=== PATIENT | female | born 1960 | race Caucasian/White ===

== ENCOUNTER 2017-10-03 03:08 | Emergency (ER) | payer BC, OTHER ==
[~2017-10-03] VITALS: Ht 152.4 cm; Wt 75.7 kg
[2017-10-03 03:23] VITALS: BP 155/88
[2017-10-03] MEDS ORDERED: SOLU-MEDROL ONE (03:24)
[2017-10-03] MEDS ORDERED: BENADRYL PO ONE (03:25)
[2017-10-03] MEDS ORDERED: SOLU-MEDROL IM STA (03:26)
[2017-10-03] MEDS ORDERED: BENADRYL PO STA (03:26)
--- NOTE | 2017-10-03 03:47 | ER.PDOC ---
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 Also ate almonds at that time, but has eaten them in the past. Noted facial flushing, "funny feeling in throat", the latter better with 25 mg po Benadryl (no more) taken at home. No hx of this in past. No other symptoms. No wheezing, SOB, tongue swelling, etc. Severity: mild Associated Symptoms: skin rash, redness Identified Cause: possibly Exposure: other Allergies: Coded Allergies: No Known Allergies (Unverified , 10/03/17) Vital Signs First Vital Signs Date Time Temp Pulse Resp B/P (MAP) Pulse Ox O2 Delivery O2 Flow Rate FiO2 10/03/17 03:17 97.9 97 16 10/03/17 03:17 98 Room Air 10/03/17 03:23 155/88 (110) Last Vital Signs Date Time Temp Pulse Resp B/P (MAP) Pulse Ox O2 Delivery O2 Flow Rate FiO2 10/03/17 03:23 97.9 97 16 155/88 (110) 98 Room Air Past Medical History Medical History: asthma, cancer, other (obesity, BMI 33) Surgical History: cancer surgery, knee LMP (females 10-50): 1 month Social History Smoking: non-smoker, other Alcohol Use: occassionally Drug Use: none Constitutional: see HPI EENTM: see HPI Respiratory: no symptoms reported Gastrointestinal: no symptoms reported Musculoskeletal: no symptoms reported Skin: see HPI All Other Systems: Reviewed and Negative Physical Exam General Appearance: alert, no distress HEENT: ENT nml inspection, voice nml Skin: warm/dry (no uticaria noted, no diaphoresis), other (+ facial flushing on cheeks/forehead, no angioedema, no tongue swelling or pharyngeal edema) Neck: nml inspection Respiratory: no resp. distress NEURO/PSYCH: oriented x 3, CN's nml as tested Results/Orders Results/Orders Administered Medications Medications (Trade) Dose Ordered Sig/Chato Route PRN Reason Start Time Stop Time Status Last Admin Dose Admin Methylprednisolone Sodium Succinate (Solu-Medrol) 125 mg STAT STAT IM 10/03/17 03:26 10/03/17 03:30 DC 10/03/17 03:37 Diphenhydramine HCl (Benadryl) 25 mg STAT STAT PO 10/03/17 03:26 10/03/17 03:30 DC 10/03/17 03:37 Progress Progress solumendrol IM and 25 mg more of Benadryl, home with 2 days off work and instructions to take this med 50 mg q 4-6 hrs until erythema gone. Departure Time of Disposition: 03:50 Disposition: 01 HOME, SELF-CARE Impression: Primary Impression: Acute allergic reaction Condition: Stable Referrals: PCP,UNKNOWN (PCP) PRIMARY CARE PROVIDER Duration or Time Spent with Pa: 10 Problem Qualifiers Primary Impression: Acute allergic reaction Encounter type: initial encounter Qualified Codes: T78.40XA - Allergy, unspecified, initial encounter KOBI CUBA MD October 03, 2017 03:47
[2017-10-03 04:10] VITALS: BP 155/88
== END 2017-10-03 04:08 | disposition home or self-care (01) ==
LOC: ER 03:08
DX: T78.1XXA Other adverse food reactions, not elsewhere classified, initial encounter (principal); E66.9 Obesity, unspecified; J45.909 Unspecified asthma, uncomplicated; Z68.33 Body mass index [BMI] 33.0-33.9, adult; X58.XXXA Exposure to other specified factors, initial encounter
CPT/HCPCS: 96372; 99283; J2930; Q0163

== ENCOUNTER 2020-09-02 18:32 | Emergency (ER) | payer OTHER, BC ==
[~2020-09-02] VITALS: Ht 152.4 cm; Wt 69.4 kg
[2020-09-02] MEDS ORDERED: LIDOCAINE 1% VIAL ONE (18:40)
[2020-09-02 18:44] VITALS: BP 154/76
[2020-09-02] MEDS ORDERED: NORCO 10MG PO STA (18:50)
[2020-09-02 18:54] VITALS: BP_SYST 154
[2020-09-02] MEDS ORDERED: NORCO 10MG PO ONE (18:58)
--- NOTE | 2020-09-02 19:04 | ER.PDOC ---
General Chief Complaint: Head Injury Stated Complaint: HEAD INJURY Time seen by MD: 19:00 Source: patient Exam Limitations: no limitations History of Present Illness Occurred: just prior to arrival Where: work Severity: mild Location: other (VERTEX) Method of Injury: direct blow Allergies: Coded Allergies: No Known Allergies (Unverified , 10/03/17) Past Medical History Medical History: asthma Surgical History: appendectomy, knee Social History Alcohol Use: occassionally Drug Use: none Reviewed Nursing Reviewed: Vital Signs, Abn. Noted Review of Systems All Other Systems: Reviewed and Negative Physical Exam General Appearance: Alert, No Apparent Distress, WD/WN Head: Lacerations Eye: PERRL, EOMI, No nystagmus ENT: Nml external inspection, Pharynx nml 1 - 3 CM LAC Neck: non-tender, painless ROM, trachea midline Cardiovascular/Respiratory: Regular Rate, Rhythm, No M/R/G, Normal Peripheral Pulses, No JVD, Normal Breath Sounds, No Respiratory Distress Gastrointestinal: Normal Bowel Sounds, No Organomegaly, No Pulsatile Mass, Non Tender, Soft Back: Normal Inspection, No CVA Tenderness, No Vertebral Tenderness Extremities: Normal Range of Motion, Non-Tender, Normal Inspection, No Pedal Edema, No Calf Tenderness, Normal Capillary Refill NEURO/PSYCH: Alert, Oriented x3, Cooperative, Interactive, Mood/affect nml Cranial Nerves: Normal Hearing, Normal Speech, PERRL Coordination/Gait: Normal Finger to Nose, Normal Gait Motor/Sensory: No Motor Deficit, No Sensory Deficit, No Pronator Drift, Negative Babinski's Sign Skin: Normal Color, Warm/Dry Lymphatic: No Adenopathy ED LACERATION WOUND REPAIR Wound Length (cm): 3 Wound cleaned: betadine Distal NVT: neuro intact Anesthesia type: local Anesthesia: 1% Lidocaine Wound's Depth, Shape: superficial, linear Wound Explored: clean Wound Repaired With: kristina Results/Orders Results/Orders Orders - JESSICA TERESA MD Lidocaine Hcl (Lidocaine 1% Vial) (09/02/20 18:40) Hydrocodone/Acetaminophen ([place] 10mg) (09/02/20 18:50) Hydrocodone/Acetaminophen ([place] 10mg) (09/02/20 18:58) Vital Signs Date Time Temp Pulse Resp B/P (MAP) Pulse Ox O2 Delivery O2 Flow Rate FiO2 09/02/20 18:54 16 09/02/20 18:44 98.2 84 16 98 09/02/20 18:44 98.2 84 16 09/02/20 18:44 98.2 84 16 154/76 (102) 98 Room Air Administered Medications Medications (Trade) Dose Ordered Sig/Chato Route PRN Reason Start Time Stop Time Status Last Admin Dose Admin Acetaminophen/ Hydrocodone Bitart ([place] 10mg) 1 each STAT STAT PO 09/02/20 18:50 09/02/20 18:52 DC 09/02/20 19:02 1 EACH ER DEPART Departure Time of Disposition: 19:00 Disposition: 01 HOME, SELF-CARE Impression: Primary Impression: Scalp laceration Condition: Improved Patient Instructions: Head Injury, Adult, [id number] Referrals: PCP,UNKNOWN (PCP) PRIMARY CARE PROVIDER Duration or Time Spent with Pa: [employer] JESSICA TERESA MD Sep 02, 2020 19:04
== END 2020-09-02 19:11 | disposition home or self-care (01) ==
LOC: ER 18:32 → EDBD 18:32 → ER 19:11
DX: S01.01XA Laceration without foreign body of scalp, initial encounter (principal); J45.909 Unspecified asthma, uncomplicated; W22.8XXA Striking against or struck by other objects, initial encounter; Y93.89 Activity, other specified; Y92.89 Other specified places as the place of occurrence of the external cause; Y99.0 Civilian activity done for income or pay
CPT/HCPCS: 12002; 99283; A4649; J2001